=== PATIENT | female | born 1995 | race Caucasian/White ===

== ENCOUNTER 2020-12-16 04:55 | Emergency (ER) | payer SELFPAY ==
[~2020-12-16] VITALS: Ht 162.6 cm; Wt 49.6 kg
--- NOTE | 2020-12-16 04:57 | PHYS DOC ---
General Adult HPI: HPI: ".. I got a really bad tooth ache.. I broke off this one in the back.. .. " Patient is a 25 year old female who presents with above hx and complaints of dental pain. Pt. has multiple dental caries and complaints of primary area of pain in tooth 15# that has recent fracture. Patient does have gingivitis and some inflammation of the gumline and buccal mucosa. Patient denies history immunosuppression. No recent travel or.Ill contacts. Patient reportedly follows with Dr. Baldwin as primary care. Pt. denies . States had tubal ligation. Review of Systems: Review of Systems: Constitutional: Denies fever or chills Eyes: Denies change in visual acuity HENT: Complains of dental pain Respiratory: Denies cough or shortness of breath Cardiovascular: Denies chest pain or edema GI: Denies abdominal pain, nausea, vomiting, bloody stools or diarrhea : Denies dysuria Musculoskeletal: Denies back pain or joint pain Integument: Denies rash Neurologic: Denies headache, focal weakness or sensory changes Endocrine: Denies polyuria or polydipsia Lymphatic: Denies swollen glands Psychiatric: Denies depression or anxiety Family History: Family History: Noncontributory to presentation Current Medications: Current Meds: See nursing for home meds Allergies: Allergies: No known drug allergies Physical Exam: PE: Constitutional: In moderate acute distress, non-toxic appearance. [] HENT: Normocephalic, atraumatic, bilateral external ears normal, oropharynx moist, no oral exudates, nose normal. Dental caries. Fractured tooth area 15 Eyes: PERRLA, EOMI, conjunctiva normal, no discharge. [] Neck: Normal range of motion, no tenderness, supple, no stridor. [] Cardiovascular:Heart rate regular rhythm, no murmur [] Lungs & Thorax: Bilateral breath sounds equal apex with few scattered wheezes on auscultation [] Abdomen: Bowel sounds normal, soft, no tenderness, no masses, no pulsatile masses. Old surgical scar Skin: Warm, dry, no erythema, no rash. [] Back: No tenderness, no CVA tenderness. [] Extremities: No tenderness, no cyanosis, no clubbing, ROM intact, no edema. [] Neurologic: Alert and oriented X 3, normal motor function, normal sensory function, no focal deficits noted. [] Psychologic: Affect anxious, judgement normal, mood normal. [] EKG: EKG: [] Radiology/Procedures: Radiology/Procedures: [] Heart Score: Risk Factors: Risk Factors: DM, Current or recent (<one month) smoker, HTN, HLP, family history of CAD, obesity. Risk Scores: Score 0 - 3: 2.5% MACE over next 6 weeks - Discharge Home Score 4 - 6: 20.3% MACE over next 6 weeks - Admit for Clinical Observation Score 7 - 10: 72.7% MACE over next 6 weeks - Early Invasive Strategies Course & Med Decision Making: Course & Med Decision Making Pertinent Labs and Imaging studies reviewed. (See chart for details) Urine supplied by Pt.- ph 7 and no cells, very low concentration- suspect tap water. Patient rinse mouth with Listerine or hydrogen peroxide 4 times a day. Patient to use sugarless chewing gum or fractured tooth. Patient follow-up with primary care. Patient must follow-up with dentist. Take Keflex 500 mg 3 times a day. Take Tylenol for pain. Patient informed nothing we do in the emergency room will fix the cause of her underlying pain must follow-up with oral surgery or dentist. Impression: 1. Dental Pain 2. Fracture Tooth 15. 3. Dental Caries [] Dragon Disclaimer: Dragon Disclaimer: This electronic medical record was generated, in whole or in part, using a voice recognition dictation system. Departure Departure: Referrals: PCP,NO (PCP) Scripts Cephalexin (KEFLEX) 750 Mg Capsule 500 MG PO TID for dental infection for 10 Days, #20 CAP Prov: NAOMIE OROZCO MD 12/16/20 Dragon Disclaimer This chart was dictated in whole or in part using Voice Recognition software in a busy, high-work load, and often noisy Emergency Department environment. It may contain unintended and wholly unrecognized errors or omissions. NAOMIE OROZCO MD Dec 16, 2020 04:57
[2020-12-16] MEDS ORDERED: HYDROcodon/IBUPROFEN 7.5/200MG 1 TAB TABLET PO ONE (05:15)
[2020-12-16] MEDS ORDERED: CEPHALEXIN 250 MG CAPSULE PO ONE (05:15)
[2020-12-16 05:27] VITALS: BP 125/72
[2020-12-16] MEDS ORDERED: HYDROcodon/IBUPROFEN 7.5/200MG 1 TAB TABLET ONE (05:37)
[2020-12-16] MEDS ORDERED: CEPHALEXIN 250 MG CAPSULE ONE (05:37)
[2020-12-16] MEDS ORDERED: CEPH750C9 PO (05:45)
[2020-12-16 05:52] LABS: BARBITURATES NEG (NEG); BENZODIAZEPINES NEG (NEG); BILIRUBIN,URINE NEG (NEG); CANNABINOIDS NEG (NEG); CLARITY,URINE CLOUDY; COCAINE NEG (NEG); COLOR,URINE COLORLESS; GLUCOSE,URINE NEG (NEG); METHADONE NEG (NEG); OPIATES NEG (NEG); PHENCYCLIDINE NEG (NEG)
[2020-12-16 05:53] LABS: BACTERIA,URINE 0 /HPF (0-FEW); NITRITE,URINE NEG (NEG); RBC,URINE 0 /HPF (0-2); UROBILINOGEN,URINE 0.2 mg/dL (0.2 mg/dL); WBC,URINE 0 /HPF (0-4)
[2020-12-16 05:57] LABS: AMPHETAMINE/METHAMPHETAMINE NEG (NEG)
== END 2020-12-16 05:55 | disposition home or self-care (01) ==
LOC: ER 04:55
DX: S02.5XXA Fracture of tooth (traumatic), initial encounter for closed fracture (principal); Z98.51 Tubal ligation status; X58.XXXA Exposure to other specified factors, initial encounter; Y93.89 Activity, other specified; Y92.89 Other specified places as the place of occurrence of the external cause; Y99.8 Other external cause status
CPT/HCPCS: 36415; 80307; 81001; 81025; 99283-25